=== PATIENT | female | born 1980 | race Caucasian/White ===

== ENCOUNTER 2018-07-28 13:34 | Emergency (ER) | payer OTHER ==
--- NOTE | 2018-07-28 14:51 | EDM.PDOC ---
ED HPI GENERAL MEDICAL PROBLEM - General Chief Complaint: Eye Problems Stated Complaint: VISUAL PROBLEMS Time Seen by Provider: 07/28/18 14:01 Source of Information: Reports: Patient History Limitations: Reports: No Limitations - History of Present Illness INITIAL COMMENTS - FREE TEXT/NARRATIVE: Presents reporting that a couple hours ago she "couldn't see". Upon further questioning the patient states that she had photophobia and had to keep her eyes closed. She took out her contact lenses and put on sunglasses. She states that her eyes hurt and they are watery. She also has some "color spectrums" around objects. She states that she is otherwise healthy without chronic medical problems. No headache, focal weakness. No exposures or injury. Bilateral Eye Pain Score (Numeric/FACES): 8 - Related Data Allergies Allergy/AdvReac Type Severity Reaction Status Date / Time Influenza Virus Vaccines Allergy Anaphylactic Verified 07/28/18 14:02 Shock propoxyphene napsylate Allergy Itching Verified 07/28/18 14:02 [From Darvocet-N] tramadol Allergy Other Verified 07/28/18 14:02 venom-honey bee Allergy Other Verified 07/28/18 14:02 [bee venom (honey bee)] Home Meds: Home Meds [place]/Polymyx B Sulf/Dexameth [Rskkqk-Ngqtk-Lsqmtali Eye Drop] 2 drop OP TID #1 bottle 07/28/18 [Rx] Past Medical History - Past Health History Medical/Surgical History: Denies Medical/Surgical History Cardiovascular History: Reports: Other (See Below) Other Cardiovascular History: Hylton-Parkinson's-White syndrome Genitourinary History: Reports: Renal Calculus RIBBON [employer]ER History: Reports: - Infectious Disease History Infectious Disease History: Reports: Chicken Pox - Past Surgical History Cardiovascular Surgical History: Reports: Cardiac Ablation, Percutaneous Transluminal Angioplasty GI Surgical History: Reports: Cholecystectomy Female Surgical History: Reports: Section, D&C, Lithotripsy/ESWL Musculoskeletal Surgical History: Reports: Arthroscopic Knee Social & Family History - Family History Family Medical History: Noncontributory - Tobacco Use Smoking Status *Q: Current Every Day Smoker Years of Tobacco use: 20 Packs/Tins Daily: 0.5 - Caffeine Use Caffeine Use: Reports: Tea - Recreational Drug Use Recreational Drug Use: No - Living Situation & Occupation Occupation: Employed ED ROS GENERAL - Review of Systems Review Of Systems: ROS reveals no pertinent complaints other than HPI. ED EXAM GENERAL W FULL EYE - Physical Exam Exam: See Below Exam Limited By: No Limitations General Appearance: Alert, No Apparent Distress Visual Acuity (R) 20/: 70 (She did not bring her glasses) Visual Acuity (L) 20/: 70 (She did not bring her glasses) With Correction: No Eyelids: Bilateral: Normal Appearance Conjunctiva & Sclera: Bilateral: Normal Appearance (Scant injection) Extraocular Movements: Bilateral: Intact Pupillary Size: Bilateral: 4 mm Pupillary Reaction: Bilateral: Brisk Ears: Normal External Exam, Normal TMs Nose: Normal Inspection Throat/Mouth: Normal Inspection, Normal Oropharynx Head: Atraumatic, Normocephalic Neck: Normal Inspection Respiratory/Chest: No Respiratory Distress, Lungs Clear, Normal Breath Sounds Cardiovascular: Regular Rate, Rhythm, No Murmur Neurological: Alert, Oriented, Normal Cognition, No Motor/Sensory Deficits Psychiatric: Normal Affect, Normal Mood Skin Exam: Warm, Dry, Intact, Normal Color, No Rash Lymphatic: No Adenopathy Course - Vital Signs Last Recorded V/S: Last Vital Signs Temp 36.4 C 07/28/18 13:59 Pulse 85 07/28/18 13:59 Resp 18 07/28/18 13:59 BP 132/87 07/28/18 13:59 Pulse Ox 95 07/28/18 13:59 Departure - Departure Time of Disposition: 14:52 Disposition: Home, Self-Care 01 Condition: Good Clinical Impression: Conjunctivitis Qualifiers: Conjunctivitis type: acute Acute conjunctivitis type: unspecified Laterality: bilateral Qualified Code(s): H10.33 - Unspecified acute conjunctivitis, bilateral - Discharge Information *PRESCRIPTION DRUG MONITORING PROGRAM REVIEWED*: Not Applicable *COPY OF PRESCRIPTION DRUG MONITORING REPORT IN PATIENT HARRY: Not Applicable Referrals: PCP,None [Primary Care Provider] - [facility] [Outside] Additional Instructions: 1. Eye drops three times daily. 2. Throw away your current contact lenses 3. Do not wear contact lenses and your symptoms have cleared 4. You must follow-up in ophthalmology. You may do so at your home in [place].
[2018-07-28 15:22] VITALS: BP 130/72
== END 2018-07-28 15:23 | disposition home or self-care (01) ==
LOC: MW.ED 13:34
DX: H10.33 Unspecified acute conjunctivitis, bilateral (principal); F17.210 Nicotine dependence, cigarettes, uncomplicated; Z88.7 Allergy status to serum and vaccine; Z88.6 Allergy status to analgesic agent; Z91.030 Bee allergy status; Z88.8 Allergy status to other drugs, medicaments and biological substances
CPT/HCPCS: 99283

== ENCOUNTER 2019-07-01 14:31 | Emergency (ER) | payer OTHER ==
--- NOTE | 2019-07-01 15:24 | EDM.PDOC ---
ED HPI GENERAL MEDICAL PROBLEM - General Chief Complaint: Lower Extremity Injury/Pain Stated Complaint: PT FELL ON ICE AND INJURED R KNEE AND ANKLE Time Seen by Provider: 07/01/19 14:37 Source of Information: Reports: Patient History Limitations: Reports: No Limitations - History of Present Illness INITIAL COMMENTS - FREE TEXT/NARRATIVE: HISTORY AND PHYSICAL: History of present illness: Patient is a 38-year-old female who presents to the emergency room with complaints of generalized right knee and right lateral ankle pain post fall. She states she was walking outside when she slipped resulting in her rolling her ankle and falling onto her knee. She denies hitting her head or having any loss of consciousness. Denies any other extremity involvement. Denies any numbness, tingling or saddle paresthesias. Patient is ambulatory although it does cause pain. Offers no systemic complaints. Review of systems: As per history of present illness and below otherwise all systems reviewed and negative. Past medical history: As per history of present illness and as reviewed below otherwise noncontributory. Surgical history: As per history of present illness and as reviewed below otherwise noncontributory. Social history: See social history for further information Family history: As per history of present illness and as reviewed below otherwise noncontributory. Physical exam: General: Well-developed and well-nourished 38-year-old female. Alert and oriented. Nontoxic-appearing and in no acute distress. HEENT: Atraumatic, normocephalic, pupils equal and reactive bilaterally, negative for conjunctival pallor or scleral icterus, mucous membranes moist, TMs normal bilaterally, throat clear, neck supple, nontender, trachea midline. No drooling or trismus noted. No meningeal signs. No hot potato voice noted. Lungs: Clear to auscultation, breath sounds equal bilaterally, chest nontender. Heart: S1S2, regular rate and rhythm without overt murmur Abdomen: Soft, obese, nontender. Negative for masses or costovertebral tenderness. Pelvis is stable nontender. Skin: Intact, warm, dry. No lesions or rashes noted. Extremities: Generalized pain with palpation of the right knee. No knee instability. Negative drawer test. Minor soft tissue swelling noted to the right lateral ankle with malleolus tenderness. Capillary refill less than 3 seconds. Positive CMS. Strong pedal and pretibial pulse. Moves all extremities per self without difficulty or deficits, negative for cords or calf pain. Neurovascular unremarkable. Neuro: Awake, alert, oriented. Cranial nerves II through XII unremarkable. Cerebellum unremarkable. Motor and sensory unremarkable throughout. Exam nonfocal. Notes: Patient is agreeable to x-rays. She declines wanting any thing for pain at this time. X-ray shows no acute findings. When we discussed Toradol or any other pain medication she states that she needs "children doses". We will have her use [id number] medication as she is comfortable. Supportive care measures were reviewed and discussed. Voices understanding and is agreeable to plan of care. Denies any further questions or concerns at this time. Diagnostics: Knee and ankle x-ray Therapeutics: Crutches Prescription: None Impression: Fall Right knee injury Right ankle injury Plan: 1. Rest, ice, elevate the affected extremity. Please wear the knee brace and use crutches as directed. 2. Tylenol and/or Ibuprofen as needed for pain management. 3. Follow up with the Orthopedic provider as we discussed. Return to the ED as needed and as discussed. Definitive disposition and diagnosis as appropriate pending reevaluation and review of above. right knee & right ankle Pain Score (Numeric/FACES): 9 - Related Data Allergies Allergy/AdvReac Type Severity Reaction Status Date / Time Influenza Virus Vaccines Allergy Anaphylactic Verified 07/01/19 14:42 Shock propoxyphene napsylate Allergy Itching Verified 07/01/19 14:42 [From Darvocet-N] tramadol Allergy Other Verified 07/01/19 14:42 venom-honey bee Allergy Other Verified 07/01/19 14:42 [bee venom (honey bee)] Home Meds: Home Meds . 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: - Infectious Disease History Infectious Disease History: Reports: Chicken Pox - Past Surgical History Cardiovascular Surgical History: Reports: Cardiac Ablation, Percutaneous Transluminal Angioplasty GI Surgical History: Reports: Cholecystectomy Female Surgical History: Reports: Section, D&C, Lithotripsy/ESWL Musculoskeletal Surgical History: Reports: Arthroscopic Knee Social & Family History - Family History Family Medical History: Noncontributory - Tobacco Use Smoking Status *Q: Current Every Day Smoker Years of Tobacco use: 20 Packs/Tins Daily: 0.5 - Caffeine Use Caffeine Use: Reports: Tea - Recreational Drug Use Recreational Drug Use: No - Living Situation & Occupation Occupation: Employed Review of Systems - Review of Systems Review Of Systems: Comprehensive ROS is negative, except as noted in HPI. ED EXAM, GENERAL - Physical Exam Exam: See Below (See dictation) Course - Vital Signs Last Recorded V/S: Last Vital Signs Temp 98.1 F 07/01/19 14:39 Pulse 74 07/01/19 15:34 Resp 18 07/01/19 15:34 BP 151/99 H 07/01/19 15:34 Pulse Ox 98 07/01/19 15:34 - Orders/Labs/Meds Orders: Active Orders 24 hr Category Date Time Status DME for Discharge [COMM] Stat Oth 07/01/19 14:50 Ordered Departure - Departure Time of Disposition: 16:02 Disposition: Home, Self-Care 01 Clinical Impression: Fall Qualifiers: Encounter type: initial encounter Qualified Code(s): W19.XXXA - Unspecified fall, initial encounter Right knee injury Qualifiers: Encounter type: initial encounter Qualified Code(s): S89.91XA - Unspecified injury of right lower leg, initial encounter Right ankle injury Qualifiers: Encounter type: initial encounter Qualified Code(s): S99.911A - Unspecified injury of right ankle, initial encounter - Discharge Information Instructions: Knee Sprain, Adult, [id number] Referrals: PCP,None [Primary Care Provider] - Forms: ED Department Discharge Additional Instructions: The following information is given to patients seen in the emergency department who are being discharged to home. This information is to outline your options for follow-up care. We provide all patients seen in our emergency department with a follow-up referral. The need for follow-up, as well as the timing and circumstances, are variable depending upon the specifics of your emergency department visit. If you don't have a primary care physician on staff, we will provide you with a referral. We always advise you to contact your personal physician following an emergency department visit to inform them of the circumstance of the visit and for follow-up with them and/or the need for any referrals to a consulting specialist. The emergency department will also refer you to a specialist when appropriate. This referral assures that you have the opportunity for follow-up care with a specialist. All of these measure are taken in an effort to provide you with optimal care, which includes your follow-up. Under all circumstances we always encourage you to contact your private physician who remains a resource for coordinating your care. When calling for follow-up care, please make the office aware that this follow-up is from your recent emergency room visit. If for any reason you are refused follow-up, please contact the [facility] at and asked to speak to the emergency department charge nurse. [facility] [address] [place] [id number] [address] 1. Rest, ice, elevate the affected extremity. Please wear the knee brace and use crutches as directed. 2. Tylenol and/or Ibuprofen as needed for pain management. 3. Follow up with the Orthopedic provider as we discussed. Return to the ED as needed and as discussed. Sepsis Event Note - Evaluation Sepsis Screening Result: No Definite Risk - Focused Exam Vital Signs: Vital Signs Temp Pulse Resp BP Pulse Ox 07/01/19 15:34 74 18 151/99 H 98 07/01/19 14:39 98.1 F 97 20 155/97 H 94 L Date Exam was Performed: 07/01/19 Time Exam was Performed: 16:01 - My Orders Last 24 Hours: My Active Orders 07/01/19 14:50 DME for Discharge [COMM] Stat - Assessment/Plan Last 24 Hours: My Active Orders 07/01/19 14:50 DME for Discharge [COMM] Stat
--- NOTE | 2019-07-01 15:53 | CR ---
Right knee: AP, lateral and sunrise patellar views the right knee were obtained. Comparison: No prior knee exam. No discrete joint effusion is seen. Small bony density noted off the lateral patella. This does not appear to be acute and may relate to old injury or other dystrophic calcification. Patellofemoral joint appears preserved. Medial and lateral joint spaces are preserved. Impression: 1. Calcification as noted above. 2. Nothing acute is seen on right knee exam. Diagnostic code #2 This report was dictated in [place] Standard Time
--- NOTE | 2019-07-01 15:53 | CR ---
Right ankle: 3 views the right ankle were obtained. Comparison: No previous right ankle study. Small plantar spur is seen. Small spur is noted at the attachment of the Achilles tendon to the calcaneus. No acute fracture, dislocation or other bony abnormality is appreciated. Impression: 1. Calcaneal spurs. 2. Right ankle study is otherwise unremarkable. Diagnostic code #2 This report was dictated in [place] Standard Time
[2019-07-01 16:46] VITALS: BP 135/85; PULSE 76
== END 2019-07-01 16:47 | disposition home or self-care (01) ==
LOC: MW.ED 14:31
DX: S89.91XA Unspecified injury of right lower leg, initial encounter (principal); S99.911A Unspecified injury of right ankle, initial encounter; F17.210 Nicotine dependence, cigarettes, uncomplicated; Z88.7 Allergy status to serum and vaccine; Z88.5 Allergy status to narcotic agent; Z91.030 Bee allergy status; W01.0XXA Fall on same level from slipping, tripping and stumbling without subsequent striking against object, initial encounter; X50.1XXA Overexertion from prolonged static or awkward postures, initial encounter
CPT/HCPCS: 73562-26-RT; 73562-RT; 73610-26-RT; 73610-RT; 99283-25